=== PATIENT | male | born 2000 | race Caucasian/White ===

== ENCOUNTER → 2020-12-18 | Outpatient (CLI) | payer OTHER ==
[~2020-12-18] VITALS: Ht 162.6 cm; Wt 113.4 kg
[~2020-12-18] MED LIST: SINCALIDE 2.27 MCG in IV NORMAL SALINE 50ML 30 ML IV ONE
--- NOTE | 2020-12-18 11:03 | RAD ---
Examination: Ultrasound abdomen limited HISTORY: History of right upper quadrant pain, nausea COMPARISON: None available FINDINGS: The visualized pancreas grossly appears unremarkable. There is increased echogenicity identified in t he liver likely hepatic steatosis. The common bile duct measures 4.3 mm in transverse dimension. No e vidence of gallstones. The right kidney measures 12.0 x 5.5 x 5.9 cm. The visualized IVC within baldo l limits of dimension IMPRESSION: Increased echogenicity identified throughout the liver likely hepatic steatosis. Electronically signed by: Stephane Houser MD (12/18/2020 11:01 AM) [id number]
--- NOTE | 2020-12-18 12:54 | RAD ---
HEPATOBILIARY SCAN WITH GALLBLADDER EJECTION FRACTION Clinical indications: Right upper quadrant abdominal pain and nausea/vomiting for 7 weeks. COMPARISON: Abdomen ultrasound study dated December 18, 2020. TECHNIQUE: After IV infusion of 5.5 mCi of technetium 99m Choletec, anterior planar images of the [facility] er abdomen were performed in sequential fashion and a time/activity curve was generated. 2.3 mcg of c holecystokinin was given intravenously and a gallbladder ejection fraction was measured and calculate d. FINDINGS: Homogeneous uptake is seen throughout the liver. Radiotracer activity is seen within the ga llbladder by 15 minutes. Radiotracer activity is seen within the duodenum by 10 minutes. Gallbladder ejection fraction is measured and calculated to be 94%. Normal is greater than 35%. IMPRESSION: Normal hepatobiliary scan with gallbladder ejection fraction of 94%. Electronically signed by: Jared Delgado MD (12/18/2020 12:52 PM) [id number]
== END ==
LOC: US 10:11
PROVIDERS: ATTEND Internal Medicine Gastroenterology
DX: R10.31 Right lower quadrant pain (principal); R11.0 Nausea
CPT/HCPCS: 76705; 78227; A9537; J2805

== ENCOUNTER 2021-01-12 07:43 | Day surgery (SDC) | payer OTHER ==
[~2021-01-12] VITALS: Ht 166.4 cm; Wt 114.5 kg
[~2021-01-12 07:43] MED LIST changes: +DICY10CA3 PO; +DULO20CA PO; +HYDROmorphone 2 MG/ML VIAL IVP PRN; +IV RINGERS,LACTATED 1000ML 1,000 ML IV SCH; +MORPHINE SULFATE 2 MG/ML VIAL. IVP PRN; +OMEP40CA7 PO; +PROCHLORPERAZINE 10 MG/2 ML VIAL. IVP PRN; -SINCALIDE 2.27 MCG in IV NORMAL SALINE 50ML 30 ML IV ONE; +ceFAZolin SODIUM 3 GM in IV DEXTROSE 5% 100ML 100 ML IV PRN; +fentaNYL PF VIAL 100 MCG/2 ML VIAL IVP PRN
[2021-01-12 08:04] VITALS: BP 171/88
[2021-01-12] MEDS ORDERED: ONDANSETRON PF 4 MG/2 ML VIAL. ONE (08:11)
[2021-01-12] MEDS ORDERED: LIDOCAINE 2% PF 5 ML VIAL. ONE (08:11)
[2021-01-12] MEDS ORDERED: ROCURONIUM 50 MG/5 ML VIAL. ONE ×2 (08:11→09:31)
[2021-01-12] MEDS ORDERED: DEXAMETHASONE SOD PHOS 4 MG/ML VIAL ONE (08:11)
[2021-01-12] MEDS ORDERED: PROPOFOL 10 MG/ML (20ML) VIAL. IV ONE (08:11)
[2021-01-12] MEDS ORDERED: MIDAZOLAM HCL/PF 2 MG/2 ML VIAL. ONE ×2 (08:12→09:33)
[2021-01-12] MEDS ORDERED: fentaNYL PF VIAL 100 MCG/2 ML VIAL ONE ×4 (08:13→09:39)
[2021-01-12] MEDS ORDERED: SURGICEL HEMOSTAT 4X8 EACH. ONE (08:51)
[2021-01-12] MEDS ORDERED: IOHEXOL 300 MG/ML 50 ML VIAL. ONE (08:51)
[2021-01-12] MEDS ORDERED: BUPIVACAINE MPF 0.5% 30 ML VIAL. ONE (08:51)
[2021-01-12] MEDS ORDERED: SEVOFLURANE 61 TO 120 MINUTES. IH ONE (09:26)
[2021-01-12] MEDS ORDERED: GLYCOPYRROLATE 1 MG/5 ML VIAL. ONE (09:28)
[2021-01-12] MEDS ORDERED: NEOSTIGMINE METHYLSULFATE 5 MG/5 ML SYRINGE. ONE (09:28)
[2021-01-12] MEDS ORDERED: ESMOLOL 100 MG/10 ML VIAL. IVP ONE (09:53)
--- NOTE | 2021-01-12 10:27 | PDOC4 ---
Operative Note Operative Note Operative Note: Preoperative Diagnosis: Biliary dyskinesia Postoperative Diagnosis: Same Procedure: Laparoscopic cholecystectomy with intraoperative cholangiogram Surgeons: Irving Director Long Term Care: EMANUEL Rhodes Anesthesia: Gen. Estimated Blood Loss: 10 mL Specimen: Gallbladder to pathology Drains: None Complications: None Indications: The patient is a 20-year-old male who is referred with suspected biliary dyskinesia. Surgical treatment was offered by means of a laparoscopic cholecystectomy. The risks of surgery were discussed which include bleeding, infection, bile duct injury, bile leak, pain, the potential for additional surgeries or procedures. The patient understands and would like to proceed. Description: The patient was taken to the operating room and laid supine on the operating table. General anesthesia was performed. The abdomen was prepped with ChloraPrep and draped in a standard surgical fashion. A small infr aumbilical incision was made with a scalpel. The Veress needle was then inserted and a pneumoperitoneum was then created. A 5 mm trocar was then inserted and the laparoscope was introduced. In the upper midabdomen a 5 mm trocar was inserted and in the right upper quadrant two 2.3 mm mini lap graspers were inserted. The gallbladder was retracted cephalad. The cystic duct was d issected free from surrounding tissues. One clip was placed on the duct near the gallbladder junction. An opening was made in the duct and a cholangiocatheter placed within and secured with a clip. Using contrast dye and fluoroscopy an intraoperative cholangiogram was performed that appeared unremarkable. The clip and catheter were then withdrawn. Three clips were placed on the cystic duct and it was divided. The cystic artery was then identified, dissected free, doubly clipped and divided as well. The gallbladder was then mobilized away from the liver with cautery. The umbilical 5 millimeter trocar was exchanged for an 11 millimeter trocar. The gallbladder was then placed in an endoscopic bag and extracted at the umbilical trocar site. The fascia there was closed with an 0 Vicryl suture and infiltrated with 0.5% marcaine. All blood and irrigation fluid was suctioned and hemostasis was good. The remaining ports were removed and the pneumoperitoneum was relieved. The skin incisions were closed using 4-0 Monocryl suture. Steri-Strips and dressings were then applied. The patient tolerated the procedure well and was sent to the recovery room in stable condition. At the end of the case all counts were correct. DESTINI BANKS MD Jan 12, 2021 10:27
--- NOTE | 2021-01-12 10:30 | DISCH ---
DISCHARGE INSTRUCTIONS Condition on Discharge Condition on Discharge: Stable Activity After Discharge Activity Instructions for Disc: Other, see below (no lifting over 20 lbs X 2 weeks) Diet after Discharge Diet after Discharge: Regular Wound Incision Care Wound/Incision Care: Other, see below (may remove bandaids tomorrow and shower) Follow-Up Follow up with: Dr Banks in 2 weeks in office, call for appointment [phone] DESTINI BANKS MD Jan 12, 2021 10:30
--- NOTE | 2021-01-12 10:42 | RAD ---
EXAM: INTRAOPERATIVE CHOLANGIOGRAM. HISTORY: Gallbladder disease. Intraoperative cholangiogram with cholecystectomy. COMPARISON: None. FINDINGS: 3 fluoroscopic images are obtained intraoperatively during injection of the cystic duct rem nant after cholecystectomy. There are no filling defects to suggest retained stones. The common duct is not dilated. Fluoroscopy time 9 seconds. IMPRESSION: 1. No evidence of retained stones. Electronically signed by: Sanjeev Sung MD (01/12/2021 10:40 AM) [id number]
[2021-01-12] MEDS ORDERED: OXYC-325 PO (10:46)
[2021-01-12] MEDS ORDERED: oxyCODONE/APAP 5/325 1 TAB TABLET PO ONE ×2 (11:00)
[2021-01-12 11:34] VITALS: BP 124/93
--- NOTE | 2021-01-15 09:09 | PATHOLOGY ---
[facility] Accession Number: [id number] . 01 Material submitted: . gallbladder - GALLBLADDER . 01 Clinical history: . BILIARY DYSKINESIA LAP CHOLECYSTECTOMY . 02 Diagnosis: Gallbladder, laparoscopic cholecystectomy: - Cholesterolosis, focal. - Chronic cholecystitis. (ANTONIOM:jimena; 01/14/2021) [facility] 01/14/2021 1614 Local . 02 Comment: There are no calculi identified within the gallbladder lumen or specimen container. There is no evidence of malignancy. (ANTONIOM:jimena; 01/14/2021) . 02 Electronically signed: . Deric Brantley MD, Pathologist NPI- [id number] . 01 Gross description: . Fixative: Formalin Labeled: Gallbladder Specimen received: Intact cholecystectomy specimen Dimensions: 8.3 x 4.1 x 3.2 cm Serosa: Campos-green and smooth Lymph node: None identified Mucosa: Dark green and velvety Average wall thickness: 0.1-0.2 cm Calculi: None identified Abnormalities: None identified A1- Office Agent body, fundus, and the cystic duct margin. [place] [place] [facility] 01/13/2021 1818 Local . 02 Pathologist provided ICD-10: K81.1, K82.4 . 02 CPT . 602231 Specimen Comment: A courtesy copy of this report has been sent to [phone], [phone] Specimen Comment: [phone] Specimen Comment: Report sent to / DR BALLESTEROS Performed at: 01 [facility] [address], [place], [place] [id number] MD Les Vang MD Phone: [phone] Performed at: 02 [facility] [place] [address] [place], [place] [id number] MD Deric Brantley MD Phone: [phone]
== END 2021-01-12 12:34 | disposition home or self-care (01) ==
LOC: SURG 07:43
PROVIDERS: ATTEND Surgery
DX: K82.8 Other specified diseases of gallbladder (principal); J45.909 Unspecified asthma, uncomplicated; K21.9 Gastro-esophageal reflux disease without esophagitis; F41.9 Anxiety disorder, unspecified; F32.9 Major depressive disorder, single episode, unspecified; Z79.899 Other long term (current) drug therapy; Z98.890 Other specified postprocedural states
CPT/HCPCS: 47563; 74300; A4213; A4314; A4364; A4930; A6219; C1887; J1100; J2250; J2405; J2704; J2710; J3010; J3490; Q9967; 88304; A4452; A4657